=== PATIENT | female | born 1930 | race Caucasian/White ===

== ENCOUNTER → 2016-06-20 | Outpatient (CLI) | payer MEDICARE, OTHER ==
--- NOTE | 2016-06-20 15:04 | RAD ---
EXAM DESCRIPTION: XR ABDOMEN 1 VIEW (KUB) CLINICAL HISTORY: R19.7 right lower quadrant pain and diarrhea COMPARISON: None. IMPRESSION: AP supine view of the abdomen obtained on 2 radiographs shows no air-filled dilated loops of small bowel. Nonspecific bowel gas pattern is seen. There appears to be elevation of the right hemidiaphragm. Right lung base is not visualized. The left lung base is unremarkable. No abnormal calcifications are identified. Electronically signed by: Nguyễn Shea MD 06/20/2016 15:01
== END ==
LOC: YCFC.O 11:53
PROVIDERS: ATTEND Nurse Practitioner Family
DX: R19.7 Diarrhea, unspecified (principal); N39.0 Urinary tract infection, site not specified; R30.9 Painful micturition, unspecified

== ENCOUNTER → 2016-07-12 | Outpatient (CLI) | payer MEDICARE, OTHER ==
--- NOTE | 2016-07-12 10:39 | RAD ---
EXAM DESCRIPTION: XR ANKLE 3 OR MORE VIEWS CLINICAL HISTORY: 86 y/o ,F, ANKLE PAIN COMPARISON: March 2012 IMPRESSION: Interval fracturing of the syndesmosis screw on today's study. 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 The remaining hardware of the left ankle is unremarkable. Degenerative change of the anterior tibia talar joint with osteophyte formation noted. No new fracture. Electronically signed by: Abhijit Beauchamp MD 07/12/2016 10:37
== END | disposition home or self-care (01) ==
LOC: RAD 08:20
PROVIDERS: ATTEND Orthopaedic Surgery
DX: M25.572 Pain in left ankle and joints of left foot (principal)

== ENCOUNTER → 2017-09-27 | Outpatient (CLI) | payer MEDICARE, OTHER ==
--- NOTE | 2017-09-28 12:35 | RAD ---
EXAM DESCRIPTION: Ankle,Right 3 Views CLINICAL HISTORY: 87 years, Female, PAIN IN RIGHT ANKLE COMPARISON: Previous study April 14, 2016 TECHNIQUE: AP/lateral/oblique of the right ankle FINDINGS: Intact medial and lateral malleolus. There is moderate soft tissue swelling laterally. Intact proximal metatarsals. Intact dome of the talus. Lateral view shows no evidence of fracture of the body of the talus or calcaneus. Mild dorsal calcaneal spurring is seen. Mild spurring is seen at the talonavicular joint Question small ankle joint effusion. Bones appear demineralized. IMPRESSION: No identified fracture. Electronically signed by: Ej Ureña MD 09/28/2017 12:34 PM CDT
--- NOTE | 2017-09-28 12:38 | RAD ---
EXAM DESCRIPTION: Ankle,Left 3 Views CLINICAL HISTORY: 87 years, Female, PAIN IN LEFT ANKLE COMPARISON: Previous left ankle x-ray July 12, 2016 TECHNIQUE: AP/lateral/oblique of the left ankle FINDINGS: Plate and screws are seen in the distal fibula with one screw traversing the distal fibula and tibial metaphyses. This long screw is fractured as on previous study. Two screws are seen through the medial malleolus. No change in alignment. Mild progression of fracture healing. There is mild soft tissue swelling laterally and medially. Intact proximal metatarsals. Intact dome of the talus. Lateral view shows no evidence of fracture of the body of the talus or calcaneus. No calcaneal spurring is seen. IMPRESSION: Orthopedic hardware in place with healing fractures. Fractured long screw again noted as on previous study. Electronically signed by: Ej Ureña MD 09/28/2017 12:37 PM CDT
== END ==
LOC: RAD 08:16
PROVIDERS: ATTEND Orthopaedic Surgery
DX: M25.571 Pain in right ankle and joints of right foot (principal); M25.572 Pain in left ankle and joints of left foot; T84.218D Breakdown (mechanical) of internal fixation device of other bones, subsequent encounter; Z87.81 Personal history of (healed) traumatic fracture